=== PATIENT | male | born 2000 | race Caucasian/White ===

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

== ENCOUNTER 2018-01-07 16:39 | Inpatient (IN) | payer OTHER ==
[~2018-01-07] VITALS: Ht 177.8 cm; Wt 110.2 kg
[~2018-01-07 16:39] MED LIST: MOBI15TA PO
[2018-01-07] MEDS ORDERED: IOHEXOL 350 MG/ML 10 ML VIAL (for RAD DIAG) IVCONTRAST ONE (16:40)
[2018-01-07] MEDS ORDERED: DIPHTH/TETANUS/ACEL PERTUSSIS (BOOSTER) 0.5 ML VIAL/PFS IM ONE (16:46)
[2018-01-07] MEDS ORDERED: ceFAZolin 2 GM PREMIX 50 ML ONE (16:46)
[2018-01-07 16:52] VITALS: O2SAT 100
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
[2018-01-07 17:05] LABS: AUTOMATED NEUTROPHIL # 6.2 TH/MM3 (1.8-7.7); BASOPHIL # 0.1 TH/MM3 (0-0.2); BASOPHIL % 0.9 % (0.0-2.0); EOSINOPHIL # 0.2 TH/MM3 (0-0.4); EOSINOPHIL % 1.8 % (0.0-4.0); HEMATOCRIT 41.8 % (39.0-51.0); HEMOGLOBIN 14.5 GM/DL (13.0-17.0); LYMPH % 40.4 % (9.0-44.0); MEAN CELL VOLUME 81.4 FL (80.0-100.0); MEAN CORPUSCULAR HEMOGLOBIN 28.3 PG (27.0-34.0); MEAN CORPUSCULAR HGB CONC 34.7 % (32.0-36.0); MEAN PLATELET VOLUME 8.3 FL (7.0-11.0); MONO % 6.9 % (0.0-8.0); MONOCYTE # 0.9 TH/MM3 (0-0.9); PLATELET COUNT 325 TH/MM3 (150-450); RED BLOOD COUNT 5.14 MIL/MM3 (4.50-5.90); WHITE BLOOD COUNT 12.5 TH/MM3 (4.0-11.0)
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
[2018-01-07 17:14] LABS: INTERNATIONAL NORMALIZED RATIO 1.2 RATIO; PROTHROMBIN TIME - PATIENT 11.9 SEC (9.8-11.6)
[2018-01-07] MEDS ORDERED: MORPHINE SULFATE 4 MG/ML INJ ONE (17:19)
[2018-01-07] MEDS ORDERED: ONDANSETRON HCL 4 MG/2 ML VIAL ONE (17:19)
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
[2018-01-07 17:30] VITALS: BP 124/58; PULSE 81; RESP 18; O2SAT 100
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
[2018-01-07] MEDS ORDERED: NALOXONE HCL 0.4 MG/ML AMP IV PUSH PRN (19:30)
[2018-01-07] MEDS ORDERED: oxyCODONE/ACETAMINOPHEN 5 MG/325 MG TAB PO PRN (19:30)
[2018-01-07] MEDS ORDERED: Post-op Orders (for Pharmacy) XX ONE (19:30)
[2018-01-07] MEDS ORDERED: ONDANSETRON HCL 4 MG/2 ML VIAL IV PUSH PRN (19:30)
[2018-01-07] MEDS ORDERED: SODIUM CHLORIDE 0.9% FLUSH 10 ML FLUSH IV FLUSH PRN (19:30)
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
[2018-01-07] MEDS: SODIUM CHLOR 0.9% 1000 ML INJ 1,000 ML IV SCH ×2 (20:52→22:00)
[2018-01-07] MEDS: FAMOTIDINE 20 MG TAB PO SCH (20:52)
[2018-01-07] MEDS: SODIUM CHLORIDE 0.9% FLUSH 10 ML FLUSH IV FLUSH SCH (20:52)
[2018-01-07] MEDS: MORPHINE SULFATE 4 MG/ML INJ IV PRN (20:53)
[2018-01-07] MEDS ORDERED: DOCUSATE SODIUM 100 MG CAP PO SCH (21:00)
[2018-01-07 21:29] VITALS: O2SAT 97
[2018-01-07 22:00] VITALS: BP 136/64; PULSE 88; RESP 18; TEMP 98.5; O2SAT 97
[2018-01-08] VITALS (9 sets, daily range): BP systolic 123–134; BP diastolic 57–61; PULSE 72–98; RESP 15–23; TEMP 98.6–98.7; O2SAT 96–98
[2018-01-08] MEDS: MORPHINE SULFATE 4 MG/ML INJ IV PRN (04:38)
[2018-01-08 05:02] LABS: AUTOMATED NEUTROPHIL # 8.1 TH/MM3 (1.8-7.7); BASOPHIL % 0.3 % (0.0-2.0); EOSINOPHIL % 0.2 % (0.0-4.0); HEMATOCRIT 39.2 % (39.0-51.0); HEMOGLOBIN 13.5 GM/DL (13.0-17.0); LYMPH % 11.6 % (9.0-44.0); LYMPHOCYTE # 1.2 TH/MM3 (1.0-4.8); MEAN CELL VOLUME 81.6 FL (80.0-100.0); MEAN CORPUSCULAR HGB CONC 34.4 % (32.0-36.0); MEAN PLATELET VOLUME 8.5 FL (7.0-11.0); MONO % 11.3 % (0.0-8.0); MONOCYTE # 1.2 TH/MM3 (0-0.9); NEUT % 76.6 % (16.0-70.0); PLATELET COUNT 241 TH/MM3 (150-450); RED CELL DISTRIBUTION WIDTH 13.7 % (11.6-17.2); WHITE BLOOD COUNT 10.6 TH/MM3 (4.0-11.0)
[2018-01-08 05:24] LABS: BICARBONATE 25.2 MEQ/L (21.0-32.0); CALCIUM 8.3 MG/DL (8.5-10.1); CREATININE 0.88 MG/DL (0.60-1.30)
[2018-01-08] MEDS: SODIUM CHLOR 0.9% 1000 ML INJ 1,000 ML IV SCH (06:00)
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
[2018-01-08] MEDS ORDERED: LACTULOSE SYRUP 20 GM/30 ML CUP PO PRN (06:15)
[2018-01-08] MEDS ORDERED: METHOCARBAMOL 500 MG TAB PO SCH (06:15)
[2018-01-08] MEDS ORDERED: MORPHINE SULFATE 4 MG/ML INJ IV PUSH PRN (06:15)
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
[2018-01-08] MEDS: ACETAMINOPHEN 1000 MG/100 ML 100 ML IV SCH ×2 (06:43→12:15)
[2018-01-08] MEDS ORDERED: PNEUMOCOCCAL POLYVALENT INJ 25 MCG/0.5 ML SYR IM ONE (09:00)
[2018-01-08] MEDS ORDERED: LIDOCAINE HCL 5% PATCH T-DERMAL SCH (09:00)
[2018-01-08] MEDS: SODIUM CHLORIDE 0.9% FLUSH 10 ML FLUSH IV FLUSH SCH (09:00)
[2018-01-08] MEDS ORDERED: DOCUSATE SODIUM 50 MG/SENNA 8.6 MG TAB PO SCH (09:00)
[2018-01-08] MEDS ORDERED: LIDO1ADH4 T-DERMAL (09:47)
[2018-01-08] MEDS ORDERED: METH500T3 PO (09:47)
[2018-01-08] MEDS ORDERED: PERC5TAB12 PO (09:47)
[2018-01-08] MEDS: FAMOTIDINE 20 MG TAB PO SCH (10:26)
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
== END 2018-01-08 15:37 | disposition home or self-care (01) | DRG 89 ==
LOC: NEPI 16:39 → NEDA 17:20 → N03A 21:44
PROVIDERS: ADMIT Surgery; ATTEND Surgery
DX: S06.0X1A Concussion with loss of consciousness of 30 minutes or less, initial encounter (principal); S27.0XXA Traumatic pneumothorax, initial encounter; S27.321A Contusion of lung, unilateral, initial encounter; S22.42XA Multiple fractures of ribs, left side, initial encounter for closed fracture; R41.2 Retrograde amnesia; R07.89 Other chest pain; R40.2412 Glasgow coma scale score 13-15, at arrival to emergency department; V53.5XXA Driver of pick-up truck or van injured in collision with car, pick-up truck or van in traffic accident, initial encounter; Y92.410 Unspecified street and highway as the place of occurrence of the external cause
CPT/HCPCS: 70450; 71045; 71260; 72125; 72170; 74177; 80048; 85025; 85610; 85730; 86850; 86900; 86901; 87641; 90471; 90715; 94150; 96374; 96375; 99291; G0390; J0131; J0690; J2270; J2405; J7030; Q9967